=== PATIENT | female | born 1930 | race Caucasian/White ===

== ENCOUNTER 2017-10-02 18:58 | Emergency (ER) | payer MEDICARE, OTHER ==
--- NOTE | 2017-10-02 20:37 | CT ---
CT CERVICAL SPINE: 10/02/17 HISTORY: Fall. Neck pain. 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 No acute fracture is seen. There is m inimal anterolistheses of C3 over C4 and C4 over C5 vertebral bodies. POS: [facility]
[2017-10-02] MEDS ORDERED: Acetaminophen 325 MG TAB ONE (20:59)
== END 2017-10-02 22:10 | disposition home or self-care (01) ==
LOC: ERS 18:58
DX: S16.1XXA Strain of muscle, fascia and tendon at neck level, initial encounter (principal); F32.9 Major depressive disorder, single episode, unspecified; Z79.891 Long term (current) use of opiate analgesic; Z79.899 Other long term (current) drug therapy; W19.XXXA Unspecified fall, initial encounter
CPT/HCPCS: 72125

== ENCOUNTER 2017-12-09 10:58 | Emergency (ER) | payer MEDICARE, OTHER ==
--- NOTE | 2017-12-09 11:44 | RAD ---
LEFT ANKLE 3 VIEWS: Date: 12/09/17 PROVIDED CLINICAL HISTORY: Left ankle pain and swelling. FINDINGS: No comparison. Changes of prior lateral fibular side plate and screw fixation noted without evidence for hardware lo osening or migration. Two cannulated partially threaded screws are noted extending through the medial malleolus without evidence for hardware loosening or migration. There is somewhat focal soft tissue prominence overlying the anterolateral aspect of the distal foreleg. Tibiotalar joint space appears p reserved. No evidence for fracture or other acute osseous abnormality. Vascular calcifications are se en. IMPRESSION: Postoperative changes without evident for hardware complication. No evidence for acute osseous abnorm ality. Nonspecific soft tissue prominence. POS: [facility]
[2017-12-09] MEDS ORDERED: Bacitracin Zinc 1 Packet ONE (13:22)
[2017-12-09] MEDS ORDERED: Acetaminophen 500 MG TAB ONE (13:47)
[2017-12-09 14:04] LABS: Bilirubin Negative (Negative); Blood, Urine Small (Negative); Clarity CLOUDY (Clear); Glucose, Urine (Dipstick) Negative (Negative); Leukocyte Large (Negative); Nitrite Positive (Negative); Protein, Urine (Dipstick) Negative (Neg-Trace); Specific Gravity, Urine 1.006 (1.002-1.036); Urobilinogen 0.2 mg/dL (0.2-1.0); pH, Urine 7.5 (5.0-9.0)
[2017-12-09 14:07] LABS: Bacteria/HPF 1+ HPF (None Seen); Hyaline Casts/LPF 0-3 HYALINE CAST LPF (0-3 Hyaline); Pathc Cast-AUWi Flag 0.14 (0-2.49); Squamous Epithelial None Seen HPF (0-3); WBC/HPF 21-50 HPF (0-3)
== END 2017-12-09 13:10 | disposition home or self-care (01) ==
LOC: ERS 10:58
DX: M25.572 Pain in left ankle and joints of left foot (principal); N30.00 Acute cystitis without hematuria; F32.9 Major depressive disorder, single episode, unspecified; Z79.899 Other long term (current) drug therapy
CPT/HCPCS: 81003; 81015; 87077; 87086; 87186; A4353